=== PATIENT | female | born 1930 | race Caucasian/White ===

== ENCOUNTER 2016-12-20 13:32 | Emergency (ER) | payer OTHER ==
[~2016-12-20] VITALS: Ht 160 cm; Wt 65.9 kg
[~2016-12-20 13:32] MED LIST: ALEVE220 M2 PO; ALPRAZOLAM0.25 M2 PO; ANTI-DIARRHEA2 MG PO; ASPIR 8181 M1 PO; ASPIR-LOW81 MG PO; ASPIRIN81 M1 PO; ATIVAN0.5 M1 PO; ATIVAN0.5 MG PO; Ativan PO; CIPRO250 MG PO; CLOBETASOL PROP60 G1 TP; DILAUDID2 MG PO; EYE DROP TEARS15 ML BOTH EYES; EYE DROP15 ML BOTH EYES; GAVISCON ES CH1 EACH PO; K-DUR20 MEQ PO; LISINOPRIL10 MG PO; LOPRESSOR25 MG PO; LORAZEPAM0.5 MG PO; METOPROLOL TART25 MG PO; NITROSTAT0.4 MG SL; OMEPRAZOLE20 M3 PO; OMEPRAZOLE40 M1 PO; PANTOPRAZOLE SO40 MG PO; POTASSIUM CHLO10 ME3 PO; Ultram PO; XANAX0.25 MG PO; ZANTAC150 MG PO; [UNRECOGNIZED DRUG - REMARK]
[2016-12-20 15:04] LABS: HEMATOCRIT 49.6 % (36.0-46.0); MCH 29.5 PG (29.0-34.0); MCHC 33.3 G/DL (30.0-36.0); MCV 88.7 FL (83-99); MEAN PLAT.VOLUME 9.2 uM^3 (9.5-12.4); PLATELET COUNT 332 K/uL (156-360); RBC DIS.WIDTH-CV 12.9 % (11.8-14.6); RBC DIS.WIDTH-SD 42.4 % (39-53); RED BLOOD COUNT 5.59 M/uL (3.80-5.20)
[2016-12-20 15:12] LABS: CHLORIDE 102 mEq/L (99-109); POTASSIUM 4.4 mEq/L (3.7-5.4); SODIUM 138 mEq/L (136-147)
[2016-12-20 15:15] LABS: GLUCOSE 119 mg/dL (70-99)
[2016-12-20 15:16] LABS: ANION GAP 10 MEQ/L (2-14); TOTAL BILIRUBIN 0.4 mg/dL (0.0-1.0)
[2016-12-20 15:18] LABS: ALKALINE PHOSPHATASE 133 IU/L (3-129); GFR ESTIMATE (CALCULATED) 50 mL/min/
[2016-12-20 15:19] LABS: UREA NITROGEN (BUN) 16 mg/dL (9-23)
[2016-12-20 15:24] LABS: ADD MIUA? YES; BILIRUBIN NEGATIVE; BLOOD SMALL; COLOR STRAW ((YELLOW)); GLUCOSE (STRIP) NEGATIVE; KETONES NEGATIVE; LEUKOCYTES NEGATIVE; NITRITE NEGATIVE; PROTEIN (STRIP) 100; SPECIFIC GRAVITY 1.009 (1.000-1.030); UROBILINOGEN 0.2 MG/DL (0.2-1.0)
[2016-12-20 15:27] LABS: TROP-I INTERPRETATION NEGATIVE; TROPONIN-I < 0.01 ng/mL (0.0-0.30)
[2016-12-20 15:32] LABS: BACTERIA NONE SEEN /HPF; EPITHELIAL CELLS RARE /HPF; MUCUS NONE SEEN /LPF; RED BLOOD CELLS 0-5 /HPF (0-5); UCUL ADDED? NO; WHITE BLOOD CELLS 0-5 /HPF (0-5)
[2016-12-20 19:15] VITALS: BP 171/86
== END 2016-12-20 19:16 | disposition home or self-care (01) ==
LOC: EME 13:32
PROVIDERS: Emergency Medicine
DX: I10 Essential (primary) hypertension (principal); I25.10 Atherosclerotic heart disease of native coronary artery without angina pectoris; Z95.5 Presence of coronary angioplasty implant and graft; Z85.3 Personal history of malignant neoplasm of breast; Z90.49 Acquired absence of other specified parts of digestive tract; Z90.710 Acquired absence of both cervix and uterus; Z90.10 Acquired absence of unspecified breast and nipple
CPT/HCPCS: 70450; 80053; 81003; 84484; 85027; 93005; 99281; 99284